=== PATIENT | female | born 1985 | race Caucasian/White ===

== ENCOUNTER 2018-09-10 02:28 | Emergency (ER) | payer OTHER ==
[2018-09-10] MEDS: IBUPROFEN 600 MG TAB PO (03:17)
== END 2018-09-10 03:15 | disposition home or self-care (01) ==
LOC: FTE 02:28
DX: S80.01XA Contusion of right knee, initial encounter (principal); E03.9 Hypothyroidism, unspecified; W18.30XA Fall on same level, unspecified, initial encounter; Y92.89 Other specified places as the place of occurrence of the external cause
CPT/HCPCS: 99282